=== PATIENT | male | born 1990 | race Two or more races ===

== ENCOUNTER 2024-08-28 23:14 | Emergency (ER) | payer OTHER ==
[~2024-08-28] VITALS: Ht 175.3 cm; Wt 86.2 kg
[2024-08-29] MEDS ORDERED: 0.9 % SODIUM CHLORIDE 1,000 ML IV STA (00:45)
[2024-08-29] MEDS ORDERED: ONDANSETRON HCL 2 MG/ML VIAL IV STA (00:45)
[2024-08-29] MEDS ORDERED: PANTOPRAZOLE SODIUM 40 MG/VIAL VIAL IV PUSH STA (00:46)
[2024-08-29 01:27] LABS: BASO % 0.3 % (0.1-1.2); EOS # 0.01 (0.04-0.54); EOS % 0.1 % (0.7-7.0); HEMATOCRIT 43.9 % (40.1-51.0); HEMOGLOBIN 14.9 g/dL (13.7-17.5); LYMPH # 1.37 (1.18-3.74); LYMPH % 10.7 % (19.3-53.1); MEAN CORPUSCULAR HEMOGLOBIN 29.7 pg (25.6-32.2); MONO # 0.44 (0.24-0.82); MONO % 3.4 % (4.7-12.5); NEUT # 10.89 (1.56-6.13); PLATELET COUNT 186 K/uL (163-369); RED BLOOD COUNT 5.02 M/uL (4.63-6.08); RED CELL DISTRIBUTION WIDTH 13.2 % (11.6-14.4)
[2024-08-29 02:00] LABS: ALBUMIN 4.1 gm/dL (3.4-5.0); BILIRUBIN TOTAL 0.27 mg/dL (0.3-1.2); CALCIUM 8.6 mg/dL (8.5-10.1); CREATININE SERUM 1.01 mg/dL (0.70-1.30); GFR 86.16; GLOBULINA 3.9 G/DL (2.4-3.5); POTASSIUM 4.03 mEq/L (3.5-5.1)
== END 2024-08-29 02:50 | disposition home or self-care (01) ==
LOC: ER 23:14
DX: K29.70 Gastritis, unspecified, without bleeding (principal); R11.10 Vomiting, unspecified